=== PATIENT | female | born 1990 | race Caucasian/White ===

== ENCOUNTER → 2017-12-09 | Outpatient (CLI) | payer BC ==
[~2017-12-09] MED LIST: ALLEGRA ALLERG180 MG PO; MICROGESTIN FE1 EACH PO; PRILOSEC 20 MG20 MG PO
== END ==
LOC: M.RAD 15:39
DX: M53.3 Sacrococcygeal disorders, not elsewhere classified (principal); G89.29 Other chronic pain; Z72.89 Other problems related to lifestyle